=== PATIENT | male | born 1955 | race Caucasian/White ===

== ENCOUNTER 2022-03-10 13:55 | Inpatient (IN) | payer MEDICARE ==
[~2022-03-10] VITALS: Ht 165.1 cm; Wt 71.0 kg
[~2022-03-10 13:55] MED LIST: ATEN100 PO; ELIQUIS5 M2 PO; HYDCHL50 PO; MIRT30ST PO; OXYB5 PO; OXYC5 PO; SIME80CH PO
[2022-03-10 15:03] LABS: BASOPHILS ABSOLUTE AUTO 0.08 K/mm3 (0.00-0.23); BASOPHILS PERCENT AUTO 1 % (0-2); EOSINOPHILS ABSOLUTE AUTO 0.33 K/mm3 (0.00-0.68); EOSINOPHILS PERCENT AUTO 3 % (0-6); Hematocrit 38.2 % (37.0-53.0); Hemoglobin 12.5 g/dL (13.5-17.5); IMMATURE GRAN ABSOLUTE AUTO 0.07 K/mm3 (0.00-0.10); IMMATURE GRAN PERCENT AUTO 1 % (0-1); LYMPHOCYTES ABSOLUTE AUTO 2.01 K/mm3 (0.84-5.20); LYMPHOCYTES PERCENT AUTO 16 % (21-46); MONOCYTES ABSOLUTE AUTO 0.92 K/mm3 (0.16-1.47); MONOCYTES PERCENT AUTO 7 % (4-13); Mean Corpuscular HGB 35.2 pg (26.0-34.0); Mean Corpuscular HGB Conc 32.7 g/dL (31.5-36.5); Mean Corpuscular Volume 108 fL (80-100); Mean Platelet Volume 9.7 fL (9.1-12.4); NEUTROPHILS ABSOLUTE AUTO 9.24 K/mm3 (1.96-9.15); NEUTROPHILS PERCENT AUTO 73 % (41-73); Platelet Count 384 K/mm3 (150-400); RDW Standard Deviation 64.2 fL (35.1-46.3); Red Blood Cell Count 3.55 M/mm3 (4.30-5.90); White Blood Cell Count 12.65 K/mm3 (4.00-11.30)
[2022-03-10 15:25] LABS: Albumin, Blood 1.6 g/dL (3.4-5.0); Albumin/Globulin Ratio 0.3 (0.8-1.8); Bilirubin, Total 1.5 mg/dL (0.1-1.0); Bun/Creatinine Ratio 26.1 (12.0-20.0); Calcium, Blood 7.9 mg/dL (8.5-10.1); Creatinine, Blood 1.19 mg/dL (0.60-1.20); Globulin, Blood 5.6 g/dL (2.2-4.0); Potassium, Blood 4.7 mmol/L (3.5-5.5); Total Protein, Blood 7.2 g/dL (6.4-8.2)
[2022-03-10 19:39] LABS: Source, Urine Clean Catch
[2022-03-10 19:48] LABS: Appearance, Urine Clear (Clear); Bilirubin, Urine Neg (Neg); Blood, Urine Neg (Neg); Color, Urine Amber (P-Yellow); Glucose Qualitative, Urine Neg (Neg); Ketones, Urine Neg (Neg); Leukocyte Esterase, Urine 1+ (Neg); Nitrite, Urine Neg (Neg); Protein, Urine 1+ (Neg); Urobilinogen, Urine 1+ (Normal)
[2022-03-10 20:16] LABS: Bacteria Rare /hpf; Red Blood Cells, Urine Not Seen /hpf (0-2); Squamous Epithelial Cells Not Seen /hpf (Few)
[2022-03-10 20:43] LABS: Influenza A, PCR NEGATIVE (NEGATIVE); Influenza B, PCR NEGATIVE (NEGATIVE); Resp Syncytial Virus, PCR NEGATIVE (NEGATIVE); SARS-Cov-2 (COVID-19) PCR, MMC NEGATIVE (NEGATIVE)
--- NOTE | 2022-03-11 00:37 | NUR ---
THIS RN ASSUMING CARE. PT ARRIVED TO FLOOR AT 0020 VIA BED ESCORT FROM ED BY LEAD DEVELOPER. C/O CHILLS AND BLADDER PRESSURE RELIEVED WITH RELAXATION TECHNIQUES.
--- NOTE | 2022-03-11 03:53 | NUR ---
SOLAR PROJECT MANAGER SUMMARY A&Ox4. PLEASANT AND COOPERATIVE WITH CARE. C/O BLADDER PRESSURE FOLLOWING LUJAN INSERTION RELEIVED WITH RELAXATION TECHNIQUES. IV FLUIDS @ 50mL/hr. BLEs EDEMATOUS WHICH HE STATES IS NOT BASELINE FOR HIM. SLEPT REST OF EVENING AFTER BEING ADMITTED TO FLOOR.
[2022-03-11 05:27] LABS: BASOPHILS ABSOLUTE AUTO 0.06 K/mm3 (0.00-0.23); BASOPHILS PERCENT AUTO 1 % (0-2); EOSINOPHILS ABSOLUTE AUTO 0.37 K/mm3 (0.00-0.68); EOSINOPHILS PERCENT AUTO 3 % (0-6); Hematocrit 33.6 % (37.0-53.0); Hemoglobin 10.6 g/dL (13.5-17.5); IMMATURE GRAN ABSOLUTE AUTO 0.06 K/mm3 (0.00-0.10); IMMATURE GRAN PERCENT AUTO 1 % (0-1); LYMPHOCYTES ABSOLUTE AUTO 2.15 K/mm3 (0.84-5.20); LYMPHOCYTES PERCENT AUTO 19 % (21-46); MONOCYTES ABSOLUTE AUTO 0.89 K/mm3 (0.16-1.47); MONOCYTES PERCENT AUTO 8 % (4-13); Mean Corpuscular HGB Conc 31.5 g/dL (31.5-36.5); Mean Corpuscular Volume 108 fL (80-100); Mean Platelet Volume 9.8 fL (9.1-12.4); NEUTROPHILS ABSOLUTE AUTO 7.72 K/mm3 (1.96-9.15); NEUTROPHILS PERCENT AUTO 69 % (41-73); Platelet Count 247 K/mm3 (150-400); RDW Coefficient Variation 16.2 % (11.7-14.2); RDW Standard Deviation 64.4 fL (35.1-46.3); Red Blood Cell Count 3.12 M/mm3 (4.30-5.90); White Blood Cell Count 11.25 K/mm3 (4.00-11.30)
[2022-03-11 05:53] LABS: Albumin, Blood 1.4 g/dL (3.4-5.0); Albumin/Globulin Ratio 0.3 (0.8-1.8); Bilirubin, Total 1.2 mg/dL (0.1-1.0); Bun/Creatinine Ratio 26.1 (12.0-20.0); Calcium, Blood 7.5 mg/dL (8.5-10.1); Creatinine, Blood 1.11 mg/dL (0.60-1.20); Globulin, Blood 4.4 g/dL (2.2-4.0); Potassium, Blood 4.2 mmol/L (3.5-5.5); Total Protein, Blood 5.8 g/dL (6.4-8.2)
--- NOTE | 2022-03-11 09:30 | NUR ---
PATIENT RESTING, RESPIRATIONS EVEN AND NON LABORED, HOLDING M,EDICATIONS FOR WHEN PATIENT WAKES, CALL LIGHT WITH IN REACH
--- NOTE | 2022-03-11 11:56 | NUR ---
PT IN WORKING WITH PATIENT NOW
--- NOTE | 2022-03-11 17:56 | NUR ---
ALERT AND ORIENTED, DROWSY, MEDICATED FOR KNEE PAIN X1 WITH OXYCODONE. 1-2 PERSON TRANSFER TO BSC WITH GAIT BELT. PATIENTS STRENGTH WAXES AND WEANS, JAY JAY TIRED LATER IN THE DAY. PT ROUNDED AND RECOMMENDED AT SNF AND CASE MANAGEMENT ALSO RECOMMENDED A SNF. ACTIVE BT, LS [id number], CLEARS WITH COUGH. ST ORDERED FOR POSSIBLE ASPIRATION OF THIN LIQUIDS. PATIENT ENCOURAGED TO SLOW DOWN WHEN DRINKING FLUIDS, NO COUGHING FROM THIN LIQUIDS TAKEN SLOWLY. DENEIS CP OR N/V, CALL LIGHT WITH IN REACH, NOT IMPULSIVE, WCTM
[2022-03-12 05:25] LABS: Hematocrit 32.6 % (37.0-53.0); Hemoglobin 10.5 g/dL (13.5-17.5); Mean Corpuscular HGB 34.5 pg (26.0-34.0); Mean Corpuscular HGB Conc 32.2 g/dL (31.5-36.5); Mean Corpuscular Volume 107 fL (80-100); Mean Platelet Volume 9.5 fL (9.1-12.4); Platelet Count 248 K/mm3 (150-400); RDW Coefficient Variation 16.2 % (11.7-14.2); RDW Standard Deviation 64.4 fL (35.1-46.3); Red Blood Cell Count 3.04 M/mm3 (4.30-5.90); White Blood Cell Count 9.89 K/mm3 (4.00-11.30)
[2022-03-12 05:55] LABS: Albumin, Blood 1.3 g/dL (3.4-5.0); Albumin/Globulin Ratio 0.3 (0.8-1.8); Bilirubin, Total 1.1 mg/dL (0.1-1.0); Bun/Creatinine Ratio 26.6 (12.0-20.0); Calcium, Blood 7.6 mg/dL (8.5-10.1); Creatinine, Blood 1.09 mg/dL (0.60-1.20); Globulin, Blood 4.8 g/dL (2.2-4.0); Potassium, Blood 4.1 mmol/L (3.5-5.5); Total Protein, Blood 6.1 g/dL (6.4-8.2)
--- NOTE | 2022-03-12 07:52 | NUR ---
SURVEY INTERVIEWER SUMMARY Patient very somnolent. unable to stay awake to eat dinner, but was eager to enjoy Ensure complete (chocolate) and drank full bottle with 350 calories and 30 gm protien. Speech is slow and deliberate, but does call appropriately for assistance. Slight murmur noted on auscultation. patient has generalized edema with large firm abdomen, 2-3+ lower extremity and scrotal edema noted Leroy had approx. 4-500 ml liquid stool in addition to 400 urine output overnight. He stated he had no discomfort, and was sleeping within minutes of his assessment. dale catheter draining clear bekah urine.
--- NOTE | 2022-03-12 10:14 | NUR ---
PT IN WOTH PATIENT NOW, PATIENT PREMEDICATED FOR PAIN WITH PT, PER PATIENT REQUEST
--- NOTE | 2022-03-12 18:59 | NUR ---
SLOW TO RESPOND, EASILY SOB, SATS 95% ON RA, REPORTED GERALDINE CRACKLE LUNG SOUNDS TO DR DENNIS, PATIENT GIVEN ALBUMIN. AMBULATED TO DOOR WITH PT, PATIENT ENCOURAGED AND WANTING TO GET BETTER AT AMBULATING. SL GERALDINE AC. NO ACUTE CHANGES, LUJAN TO GRAVITY, MAKES NEEDS KNOWN, REPORT TO ANICETO ISLAS
--- NOTE | 2022-03-13 05:10 | NUR ---
SHIFT SUMMARY PATIENT HAD NO ACUTE CHANGES. AXOX 3 AND SLOW TO RESPOND. TWO ASSIST W/FWW AND GAIT BELT TO BSC. SOB WITH EXERTION. ON ROOM AIR. LUJAN PATENT AND DRAINING TO GRAVITY. PIVS REMAIN INTACT. TELE MONITOR NSR 89. DENIES CHEST PAIN AND N/V. VSS/AFEBRILE. COOPERATIVE WITH CARE. CALL LIGHT IN REACH. BED IN LOWEST POSITION. WILL CONTINUE TO MONITOR UNTIL DAY SHIFT NURSE ASSUMES CARE.
[2022-03-13 06:04] LABS: Hematocrit 31.8 % (37.0-53.0); Hemoglobin 10.2 g/dL (13.5-17.5); Mean Corpuscular HGB 34.2 pg (26.0-34.0); Mean Corpuscular HGB Conc 32.1 g/dL (31.5-36.5); Mean Corpuscular Volume 107 fL (80-100); Mean Platelet Volume 9.4 fL (9.1-12.4); Platelet Count 203 K/mm3 (150-400); RDW Coefficient Variation 15.9 % (11.7-14.2); RDW Standard Deviation 63.7 fL (35.1-46.3); Red Blood Cell Count 2.98 M/mm3 (4.30-5.90); White Blood Cell Count 7.58 K/mm3 (4.00-11.30)
[2022-03-13 06:23] LABS: Albumin, Blood 1.7 g/dL (3.4-5.0); Albumin/Globulin Ratio 0.4 (0.8-1.8); Bilirubin, Total 1.1 mg/dL (0.1-1.0); Bun/Creatinine Ratio 25.7 (12.0-20.0); Calcium, Blood 7.6 mg/dL (8.5-10.1); Creatinine, Blood 0.93 mg/dL (0.60-1.20); Globulin, Blood 4.3 g/dL (2.2-4.0); Magnesium, Blood 2.2 mg/dL (1.6-2.4); Potassium, Blood 3.8 mmol/L (3.5-5.5)
[2022-03-13 14:50] LABS: SARS-Cov-2 (COVID-19) PCR, MMC NEGATIVE (NEGATIVE)
[2022-03-13] MEDS ORDERED: Athenol325 MG PO (16:39)
--- NOTE | 2022-03-13 18:10 | NUR ---
DISCHARGE PT DISCHARGED TO [facility]. THIS RN GAVE REPORT TO GIVEN TO JANEL OSEI. IV'S REMOVED WITHOUT DIFFICULTY. PT TRANSFERRED TO [place] VIA WHEELCHAIR. BELONGINGS WITH PT.
== END 2022-03-13 18:02 | DRG 948 ==
LOC: ER 13:55 → MEDS 03-11 00:06
PROVIDERS: Emergency Medicine; Internal Medicine; Physician Assistant; Student in an Organized Health Care Education/Training Program; ADMIT Internal Medicine
DX: R53.1 Weakness (principal); E87.20 Acidosis, unspecified; R18.8 Other ascites; E46 Unspecified protein-calorie malnutrition; E86.0 Dehydration; L22 Diaper dermatitis; K74.60 Unspecified cirrhosis of liver; I10 Essential (primary) hypertension; D64.89 Other specified anemias; E88.09 Other disorders of plasma-protein metabolism, not elsewhere classified; Z79.899 Other long term (current) drug therapy; Z79.01 Long term (current) use of anticoagulants; Z87.442 Personal history of urinary calculi; Z68.28 Body mass index [BMI] 28.0-28.9, adult; Z90.49 Acquired absence of other specified parts of digestive tract
CPT/HCPCS: 0241U; 36415; 51702; 71045; 74177; 80053; 81001; 82103; 82140; 83605; 83735; 84100; 85025; 85027; 85730; 86381; 87040; 87086; 92610; 93005; 93010; 96365-59; 96376-59; 97110; 97116; 97161; 97166; 97530; 99285-25; A9270; J0696; J7030; J7050; P9047; Q9967; U0004

== ENCOUNTER 2022-04-27 12:13 | Emergency (ER) | payer OTHER, MEDICARE ==
[~2022-04-27] VITALS: Ht 165.1 cm; Wt 85.3 kg
[~2022-04-27 12:13] MED LIST changes: +Athenol325 MG PO
[2022-04-27] MEDS ORDERED: ELIQUIS2.5 MG PO (15:25)
[2022-04-27] MEDS ORDERED: FURO20 PO (15:25)
[2022-04-27] MEDS ORDERED: OXYC5 PO (15:26)
[2022-04-27 15:50] LABS: BASOPHILS ABSOLUTE AUTO 0.09 K/mm3 (0.00-0.23); BASOPHILS PERCENT AUTO 1 % (0-2); EOSINOPHILS ABSOLUTE AUTO 0.33 K/mm3 (0.00-0.68); EOSINOPHILS PERCENT AUTO 4 % (0-6); Hematocrit 38.6 % (37.0-53.0); IMMATURE GRAN ABSOLUTE AUTO 0.03 K/mm3 (0.00-0.10); IMMATURE GRAN PERCENT AUTO 0 % (0-1); LYMPHOCYTES ABSOLUTE AUTO 2.29 K/mm3 (0.84-5.20); LYMPHOCYTES PERCENT AUTO 29 % (21-46); MONOCYTES ABSOLUTE AUTO 0.69 K/mm3 (0.16-1.47); MONOCYTES PERCENT AUTO 9 % (4-13); Mean Corpuscular HGB 32.7 pg (26.0-34.0); Mean Corpuscular HGB Conc 31.1 g/dL (31.5-36.5); Mean Corpuscular Volume 105 fL (80-100); Mean Platelet Volume 9.1 fL (9.1-12.4); NEUTROPHILS PERCENT AUTO 56 % (41-73); NRBC ABSOLUTE 0.02 K/mm3 (0.00-0.02); NRBC Auto 0.3 /100 WBC (0.0-0.2); Platelet Count 339 K/mm3 (150-400); RDW Coefficient Variation 15.9 % (11.7-14.2); RDW Standard Deviation 62.3 fL (35.1-46.3); Red Blood Cell Count 3.67 M/mm3 (4.30-5.90); White Blood Cell Count 7.83 K/mm3 (4.00-11.30)
[2022-04-27 15:57] LABS: Albumin, Blood 1.5 g/dL (3.4-5.0); Albumin/Globulin Ratio 0.2 (0.8-1.8); Bilirubin, Total 1.2 mg/dL (0.1-1.0); Bun/Creatinine Ratio 19.8 (12.0-20.0); Calcium, Blood 8.3 mg/dL (8.5-10.1); Creatinine, Blood 1.21 mg/dL (0.60-1.20); Globulin, Blood 6.7 g/dL (2.2-4.0); Potassium, Blood 3.4 mmol/L (3.5-5.5); Total Protein, Blood 8.2 g/dL (6.4-8.2)
[2022-04-27 15:58] LABS: Base Excess Venous 9.4 mmol/L; Bicarbonate Venous 30.7 mmol/L (24.0-30.0); PCO2 Venous 54.3 mmHg (38-42); pH Blood Venous 7.41 (7.34-7.37)
== END 2022-04-27 17:55 | disposition home or self-care (01) ==
LOC: ER 12:13
PROVIDERS: Emergency Medicine; Physician Assistant
DX: R06.00 Dyspnea, unspecified (principal); R05.9 Cough, unspecified; I12.0 Hypertensive chronic kidney disease with stage 5 chronic kidney disease or end stage renal disease; N18.5 Chronic kidney disease, stage 5; K55.019 Acute (reversible) ischemia of small intestine, extent unspecified; K76.9 Liver disease, unspecified; E88.09 Other disorders of plasma-protein metabolism, not elsewhere classified; Z79.01 Long term (current) use of anticoagulants; Z79.899 Other long term (current) drug therapy
CPT/HCPCS: 36415; 71046; 80053; 82140; 82803; 83690; 83880; 84484; 85025; 93005; 93010; A9270